=== PATIENT | male | born 1960 | race Caucasian/White ===

== ENCOUNTER 2016-08-06 00:52 | Day surgery (SDC) | payer OTHER ==
[~2016-08-06] VITALS: Ht 175.3 cm; Wt 88.5 kg
[~2016-08-06 00:52] MED LIST: ALBU18HF INH; AMIT75TA2 PO; DICY10CA56 PO; DIPH50C PO; DOXA8TAB73 PO; EPIN0.3P2 IJ; ESOM40CA41 PO; FLUT10.62 IH; LIDOCAINE GEL TP; LORA0.5T PO; OMPR20CCR PO; OXYC5TAB72 PO; PROM12.510 PO; QUE9 PO; QUET25TA73 PO; TAMS0.4C98 PO
[2016-08-06] MEDS ORDERED: Propofol 10 mg/mL 20 mL Inj ONE (00:53)
[2016-08-06] MEDS ORDERED: Lactated Ringer's 1,000 ML IV ONE (06:00)
[2016-08-06 12:46] VITALS: BP 126/87; PULSE 74; RESP 20; O2SAT 95
[2016-08-06] MEDS ORDERED: Lactated Ringer's 1,000 ML IV SCH (13:27)
--- NOTE | 2016-08-06 13:27 | PCM.HPANE ---
Patient Data Date of Service: Aug 06, 2016 Surgeon Admitting Provider: Attending Provider:Lisandro Mckeon MD Primary Care Physician:Sukhdev Sanabria DO Other Provider: Reason for Visit Gerd With Esophagitis Ht/WT & BMI Height (Feet): 5 Height (Inches): 9 Weight (Kilograms): 88.45 Body Mass Index 28.00 Allergies Coded Allergies: NSAIDS (Non-Steroidal Anti-Inflamma (Verified Allergy, Severe, resp distress, severe swelling, hives, 08/06/16) Penicillins (Verified Allergy, Severe, resp distress, hives, severe swelling, 08/06/16) Sulfa (Sulfonamide Antibiotics) (Verified Allergy, Severe, resp distress, severe swelling and hives, 08/06/16) acetaminophen (Verified Allergy, Severe, tongue and throat swell, 08/06/16) aspirin (Verified Allergy, Severe, ANAPHYLAXIS, 08/06/16) bupropion (Verified Allergy, Severe, ANAPHYLAXIS, 08/06/16) cyclobenzaprine (Verified Allergy, Severe, HIVES, 08/06/16) ibuprofen (Unverified Allergy, Severe, ANAPHYLAXIS, 08/06/16) latex (Verified Allergy, Severe, latex tape causes blistering; paper ok, ) paroxetine (Verified Allergy, Severe, ANAPHYLAXIS, 08/06/16) triamcinolone acetonide (Verified Allergy, Severe, blisters, rash, 08/06/16 ) cream Influenza Virus Vaccines (Verified Allergy, Unknown, UNKNOWN, 08/06/16) Past Anesthesia History Anesthesia History: Denies:: Abnormal Airway, Anesthesia Reactions (tonsils, qiana arm surgeries and carpal tunnel), Difficult Intubation, Fam Anesthesia Reaction, Fam Malignant Hypertherm, Malignant Hyperthermia Diabetes History Hx Diabetes?: No MRSA MRSA: No Medications Home Meds Incl Beta Indigo: No Reported Medications Quetiapine Fumarate 25 Mg Svoacr13.5 Mg PO QID Ref 0 08/05/16 Esomeprazole Magnesium (Nexium)40 Mg Capsule.dr40 Mg PO DAILY Ref 0 08/05/16 Cholestyramine (Cholestyramine Packet)4 Gm Packet4 Gm PO DAILY Ref 0 08/05/16 Amitriptyline 75 Mg Vmnbfz75 Mg PO HS Ref 0 08/05/16 Albuterol Sulfate (Ventolin HFA Inhaler)200 Puff/18 Gm Inhaler1 Puff INH Q4 PRN For Wheezing #1 INHALER Ref 0 03/30/14 [Lidocaine Gel] No Conflict Check1 Appl TP BID 5% 03/30/14 Tamsulosin (Flomax)0.4 Mg Capsule0.8 Mg PO DAILY 30 Days Ref 0 03/30/14 Epinephrine (Epipen 2-Erik)0.3 Mg/0.3 Ml Auto.injct0.3 Mg IJ PRN PRN For Anaphyllaxis 03/30/14 Doxazosin Mesylate 8 Mg Tablet8 Mg PO HS #30 TABLET Ref 0 03/30/14 Dicyclomine (Bentyl)10 Mg Sesusth70 Mg PO BID 03/30/14 Promethazine 12.5 Mg Wspsqa58.5 Mg PO ACHS 09/15/13 oxyCODONE 5 Mg Tablet5 Mg PO BID PRN For Pain Ref 0 09/15/13 Lorazepam 0.5 Mg Tablet0.5 Mg PO BID PRN For Anxiety Ref 0 09/15/13 Fluticasone Propionate (Flovent HFA 44 mcg)10.6 Gm Aer.w.adap2 Puffs IH BID # 10.6 GM Ref 0 09/15/13 Diphenhydramine Hcl (Benadryl)25 Mg Utaqdvw38-56 Mg PO Q4 PRN For Itching Ref 0 09/15/13 Discontinued Reported Medications Omeprazole (Prilosec)20 Mg Capcr20 Mg PO DAILY 30 Days Ref 0 03/30/14 History History of ENT Problems?: Yes HEENT History: Positive for:: Cataracts (S/P RT EXTRACTION) Sinus Problem (SEASONAL ALLERGIES) Denies:: Abnormal Airway Difficult Intubation Dysphagia Hearing Problem Denture Type: None Teeth Condition: No Teeth Hx of Heart Problems?: Yes Cardiovascular History: Positive for:: Chest Pain (Cardiac ruled out) Denies:: AICD Atrial Fibrillation Hypertension Pacemaker Valvular Heart Disease Hx of Respiratory Problem?: Yes Respiratory History: Positive for:: Asthma COPD (no recent pulmonary testing) Dyspnea (CONTRERAS) Denies:: Cough Hemoptysis Pneumonia Tuberculosis Use of C-PAP Machine Hx Neurologic Problems?: Yes Neurological History: Denies:: CVA Dementia Hx of GI Problems?: Yes Hx of Problems?: No HX of Peritoneal Dialysis: No Male Hx: Positive for:: Prostate Problems (?BPH) Denies:: Scrotal Mass Testicular Surgery Skin History: Denies:: History Skin Disorders? Pressure Ulcers Hx Musculoskeletal Problems?: No Musculoskeletal History: Positive for:: Back Injury (FALL FROM ROOF X2 C/ OF CHRONIC BACK PAIN) Fibromyalgia Musculoskeletal Trauma (FALL FROM ROOF X2 S/P LT SHOULDER RPR,ORIF BILAT WRISTS C/OF KNEE & H) Denies:: Joint Replacement Hx of Psycho/Social Problems?: Yes Psycho Social History: Positive for:: Anxiety Bipolar Disorder (ADHD) Hx Depression Hx Surgeries?: Yes ( jania fundoplication, cholecystectomy,perforated bowel, rubberband ligati) Hx Any Other Health Problems?: Yes Other History: Positive for:: Hospitalization Denies:: Cancer Endocrine Disease Thyroid Disease Hx Diabetes: No Hx Alcohol Use: NoHx Substance Use: Yes Smoking Status: Former Smoker Have You Smoked inLast 12 mo: No Stop/Bang Treated for Sleep Apnea?: No Do You Have a CPAP Machine?: No S-Snoring: Do You Snore Loudly: No T-Tired: feel tired, fatigued: No O-Obsered: Observed not breath: No P-Blood Pressure: treated: No B- Body Mass Index > 35 kg/m2: No A- Age over 50: Yes N- Neck Large Circumference: No G- Gender Male: Yes MAYCOL Total Score: 2 MAYCOL Risk Assessment: Low Risk, <3 Yes Risk Assessment Category Category 1A: Patient has history of documented sleep apnea, and HAS NOT received any narcotic, sedative or anesthesia administration during this stay. Category 1B: Patient has history of documented sleep apnea, and HAS received any narcotic , sedative or anesthesia administration during this stay Category 2: Patient has SUSPECTED Obstructive Sleep Apnea, and HAS received any narcotic , sedative or anesthesia administration during this stay. Category 3: Patient has SUSPECTED Obstructive Sleep Apnea and HAS NOT received narcotic, sedative or anesthesia administration during this stay. Category 4: Outpatient in Procedural Areas with known sleep apnea or who screen positive for High Risk via the STOP/BANG questionnaire. Exam Exam Vital Signs Vital Signs Date Time Temp Pulse Resp B/P Pulse Ox O2 Delivery O2 Flow Rate FiO2 08/06/16 12:46 36.7 74 20 126/87 95 Room Air General Appearance: Alert, Oriented X3, Cooperative, No Acute Distress HEENT/AIRWAY: MP 2 Lungs: Normal Air Movement Heart: Exam Unremarkable Plan Impression Patient chart reviewed, patient interviewed and anesthestic plan with risks, benefits, and alternatives discussed, and informed consent obtained. ASA Physical Status: ASA2 Mod Systemic Disease Anesthetic Plan: MAC Bene/Risks/Altern/Consents: Yes HP Complete Prior to Induction: Yes Prasanna Rao MD Aug 06, 2016 13:01
[2016-08-06] MEDS ORDERED: Ondansetron 2 mg/mL 2 mL Inj IVPUSH PRN (13:30)
[2016-08-06] MEDS ORDERED: MetoCLOpramide 5 mg/mL 2 mL Inj IVPUSH PRN (13:30)
[2016-08-06 13:59] VITALS: BP 86/60; PULSE 72; RESP 14; O2SAT 93
[2016-08-06 14:09] VITALS: BP 88/62; PULSE 69; RESP 14; O2SAT 92
--- NOTE | 2016-08-06 14:12 | PCM.ANEP1 ---
Post Anesthesia PACU Phase 1 Assessment Date of Service: Aug 06, 2016 Vital Signs Vital Signs Date Time Temp Pulse Resp B/P Pulse Ox O2 Delivery O2 Flow Rate FiO2 08/06/16 14:09 69 14 88/62 92 Room Air 08/06/16 13:59 36.4 72 14 86/60 93 Room Air 08/06/16 12:46 36.7 74 20 126/87 95 Room Air Anesthetic Administered: GA Level of Alertness: Awake, talking PEARCE's with Equal Strength: Yes Pain: No Nausea or Vomiting: No CV Function & Hydration Stable: Yes Airway Device: Oxygen Delivery: Room Air Lungs: Normal Air Movement Dermatome Level: Full Sensation PACU Phase 2 Assessment Complications: No Follow up Care: N/A Patient Instructions Provided: N/A Prasanna Rao MD Aug 06, 2016 14:12
--- NOTE | 2016-08-06 14:13 | ENDO ---
[address] [address] ENDOSCOPY PROCEDURE PATIENT: TOM SETH : 1960 MR#: [id number] ADMIT: 08/06/2016 JOB ID: [id number] DATE OF SERVICE: 08/06/2016 TYPE OF OPERATION: 1. Esophagogastroduodenoscopy with biopsy. 2. Colonoscopy with biopsy. PREOPERATIVE DIAGNOSIS(ES): Gastroesophageal reflux disease and diarrhea. POSTOPERATIVE DIAGNOSIS(ES): 1. Mild nonerosive gastritis status post biopsy. 2. Suboptimal prep, but otherwise normal colonoscopy status post biopsy. ANESTHESIA: Monitored anesthesia care. COMPLICATIONS: None. BLOOD LOSS: Minimal. DESCRIPTION OF PROCEDURE: After the risks and benefits were explained to the patient, informed consent was obtained. After anesthesia was administered, the upper endoscope was inserted in the mouth, intubated through the esophagus, stomach, and second portion of the duodenum, and the mucosa carefully examined. After the procedure was done, the scope was withdrawn and the procedure terminated. The colonoscope was then inserted from the rectum to the terminal ileum and the mucosa carefully examined. Prep of the patient was suboptimal. After the procedure was done, the scope was withdrawn and the procedure terminated. FINDINGS: Upon inspection of the esophagus, the esophagus was normal without masses, ulcers, or lesions. Z-line located 40 cm from the incisors. Upon entering the stomach, there was mild nonerosive gastritis seen. No masses, ulcers, or lesions were seen. Retroflexion was normal. The duodenal fold, bulb, first and second portion were normal. Biopsied in the antrum and body of the stomach and the distal esophagus. On the retroflexion view there was evidence of a Serena fundoplication and the forward view showed the previous hiatal hernia and the wrap that was placed. Upon inspection of the anus, no masses, hemorrhoids, ulcers, or fissures that were seen. Throughout the entire examination there was quite a bit of amount of liquid stool with bits of food that was seen throughout the entire colon. Otherwise, no polyps or masses were seen. Biopsies taken of the terminal ileum and random colon. Retroflexion was normal. IMPRESSIONS: 1. Mild nonerosive gastritis. 2. Status post Serena fundoplication with the forward view seeing the previous hiatal hernia. 3. Suboptimal prep, otherwise normal colonoscopy. RECOMMENDATIONS: Await pathology results. Repeat colonoscopy in five years given the suboptimal prep. Follow up in the GI Clinic as needed.
[2016-08-06 14:19] VITALS: BP 98/68; PULSE 68; RESP 14; O2SAT 92
[2016-08-06 14:29] VITALS: BP 114/80; PULSE 71; RESP 16; O2SAT 94
--- NOTE | 2016-08-08 13:10 | PATH ---
SURGICAL PATHOLOGY Attending Physician:Lisandro Mckeon MD CASE STATUS: Signed Out PATIENT NAME: LISANDRO SETH PID: [id number] : 1960 DATE COLLECTED:08/06/2016 00:00 SPECIMEN: 1: Duodenum, Biopsy 2: Stomach, Antrum, Biopsy 3: Gastric, Biopsy 4: Esophagus, Biopsy 5: Ileum, Biopsy 6: Colon, Polyp CLINICAL HISTORY: 1. DUODENAL BX 2. ANTRUM BX 3. GASTRIC BODY BX 4. DISTAL ESOPHAGUS 5. TI BX 6. RANDOM COLON BX FINAL DIAGNOSIS: 1.DUODENUM BIOPSY: FRAGMENTS OF NORMAL-APPEARING SMALL BOWEL MUCOSA. Normal delicate mucosal villi present. Negative for significant inflammation, dysplasia and malignancy. 2.GASTRIC ANTRUM BIOPSY: MILD CHRONIC GASTRITIS INVOLVING ANTRAL MUCOSA. Negative for evidence of Helicobacter on H&E stain. Negative for intestinal metaplasia. Negative for dysplasia and malignancy. 3.GASTRIC BODY BIOPSY: MUCOSAL HYPEREMIA WITHOUT ASSOCIATED SIGNIFICANT INFLAMMATION INVOLVING FUNDIC MUCOSA. Negative for evidence of Helicobacter on H&E stain. Negative for intestinal metaplasia. Negative for dysplasia and malignancy. 4.DISTAL ESOPHAGUS BIOPSIES: SQUAMOUS MUCOSA AND GASTRIC CARDIA-TYPE MUCOSA NEGATIVE FOR SPECIALIZED METAPLASIA OF DAVID' S-TYPE ESOPHAGUS. CHRONIC INFLAMMATION WITH REACTIVE EPITHELIAL CHANGES AND POSITIVE FOR SQUAMOUS INTRAEPITHELIAL EOSINOPHILS, ALL CONSISTENT WITH CHRONIC REFLUX. Negative for dysplasia and malignancy. 5.TERMINAL ILEUM BIOPSY: FRAGMENT OF NORMAL-APPEARING SMALL BOWEL MUCOSA CONSISTENT WITH TERMINAL ILEUM. Negative for granulomas, dysplasia and malignancy. 6.RANDOM COLON BIOPSIES: FRAGMENTS OF NORMAL-APPEARING COLON MUCOSA. Negative for significant architectural distortion. Negative for significant inflammation, dysplasia and malignancy. ICD10 K29.70 GROSS DESCRIPTION: 1. Received in formalin, labeled with the patient' s name and "duodenal biopsy", are two pieces of arriola, soft tissue measuring 0.1 x 0.1 x 0.1 cm to 0.5 x 0.3 x 0.2 cm. Totally submitted in cassette 1A. 2. Received in formalin, labeled with the patient' s name and "antrum biopsy", are two pieces of arriola, soft tissue measuring 0.2 x 0.1 x 0.1 cm to 0.6 x 0.2 x 0.1 cm. Totally submitted in cassette 2A. 3. Received in formalin, labeled with the patient' s name and "distal biopsy", are three pieces of arriola, soft tissue measuring 0.1 x 0.1 x 0.1 cm to 0.3 x 0.2 x 0.2 cm. Submitted in cassette 3A. 4. Received in formalin, labeled with the patient' s name and "distal esophagus", are two pieces of arriola, soft tissue measuring 0.2 x 0.1 x 0.1 cm to 0.4 x 0.2 x 0.1 cm. Totally submitted in cassette 4A. 5. Received in formalin, labeled with the patient' s name and "terminal ileum", is a single fragment of tissue measuring 0.3 cm in maximum dimension. Totally submitted in cassette 5A. 6. Received in formalin, labeled with the patient' s name and "rectal colon biopsy", are four pieces of arriola, soft tissue measuring 0.2 x 0.1 x 0.1 cm to 0.5 x 0.4 x 0.2 cm. Submitted totally in cassette 6A. ([id number]) MICRO DESCRIPTION: See diagnosis. ICD-9 CODES: CPT CODES: 1: 02509 2: 05230 3: 05501 4: 17557 5: 03385 6: 72797 Electronically Signed Out Kash Degroot MD [facility] Pathology [facility] [address], [place] [address] Technical component performed at [facility], [facility] [address], [place], [address]
== END 2016-08-06 23:59 | disposition home or self-care (01) ==
LOC: END 00:52
PROVIDERS: ATTEND Internal Medicine Gastroenterology
DX: R19.7 Diarrhea, unspecified (principal); Z86.010 Personal history of colon polyps; K29.50 Unspecified chronic gastritis without bleeding; K21.0 Gastro-esophageal reflux disease with esophagitis; K44.9 Diaphragmatic hernia without obstruction or gangrene; M05.9 Rheumatoid arthritis with rheumatoid factor, unspecified; Z79.51 Long term (current) use of inhaled steroids
CPT/HCPCS: 43239; 45380; J2250; J7120